=== PATIENT | male | born 1970 | race African-American/Black ===

== ENCOUNTER 2021-03-30 02:31 | Emergency (ER) | payer OTHER ==
[~2021-03-30] VITALS: Ht 167.6 cm; Wt 63.5 kg
--- NOTE | ~2021-03-30 | EMS ---
[facility] [address] [place] [address] EMS Patient Care Report Name: EVERARDO ROSENBERG Room #: DEP [place]#: [id number] Admission: 03/30/21 Attend Phys: Discharge: 03/30/21 Date of : 70 Report #: [id number] THIS REPORT FOR: //name// Report Transmitted: 03/30/2021 06:22 EMS Care Summary [facility] MED-ACT Incident [id number] @ 03/30/2021 02:04 Incident Location [facility] [place] [address] Patient EVERARDO ROSENBERG Male, 50 Years 1970 Patient Address Chief Complaint unconcious, possible ETOH Disposition Transported No Lights/[place] Dispatch Reason Unconscious/Fainting Transported To [facility] Narrative 1149 responded to a call from PD for a 50yo male whom they found laying in the street unconscious. Pt has the smell of ETOH on his breath and will moan when responders attempt sternal rubs. PT is moved to cot and once off road, vitals assessed as well as ETCO2, 12-lead, and BG. All assessments unremarkable and no trauma noted. PD followed EMS to closest facility, [facility] and transfer of care made to RN in room 3. Initial Vitals @02:26P: 86,R: 16,BP: 101/62,EtCO2: 36,SpO2: 96, @02:20P: 84,R: 15,EtCO2: 38,SpO2: 96,[place] Suspected: false @02:16P: 85,BP: 107/67,Temp: 97.2F,Glucose: 116,SpO2: 96, [facility] [address] [place] [address] EMS Patient Care Report Name: EVEARRDO ROSENBERG Room #: DEP [facility]#: [id number] Admission: 03/30/21 Attend Phys: Discharge: 03/30/21 Date of : 70 Report #: [id number] Impression Alcohol use Procedures @:2011-Lead ECG Timeline 02:02,Call Received 02:02,Psap Call 02:04,Dispatched 02:04,En Route 02:10,On Scene 02:12,At Patient 02:16,BP: 107/67 M,PULSE: 85,RR: R,SPO2: 96 Ox,ETCO2: ,B,PAIN: ,GCS: , 02:20,12-Lead ECG, 02:20,BP: / M,PULSE: 84,RR: 15 R,SPO2: 96 Ox,ETCO2: 38 ,BG: ,PAIN: ,GCS: , 02:23,Depart Scene 02:26,BP: 101/62 M,PULSE: 86,RR: 16 R,SPO2: 96 Ox,ETCO2: 36 ,BG: ,PAIN: ,GCS: , 02:26,At Destination 02:50,Call Closed Disclaimer [email or web address] Copyright 2020 [facility] This EMS Care Summary contains data elements from the applicable legal record (which may be displayed differently). It is designed to provide pertinent information for the following purposes: continuity of care, clinical quality, and state data reporting. The complete legal record is available to ED staff and administrators of the receiving hospital in [facility]'s Patient Tracker. All data is provided "as is."
[2021-03-30 04:57] LABS: CALCIUM 8.9 mg/dL (8.5-10.1); CREATININE 0.9 mg/dL (0.7-1.3); POTASSIUM 3.7 mmol/L (3.5-5.1)
[2021-03-30 05:15] LABS: URINE BILIRUBIN NEGATIVE (Negative); URINE BLOOD NEGATIVE (Negative); URINE CLARITY CLEAR; URINE COLOR YELLOW; URINE GLUCOSE-RANDOM* NEGATIVE (Negative); URINE KETONES 1+ (Negative); URINE LEUKOCYTES-REFLEX NEGATIVE (Negative); URINE NITRITE-REFLEX NEGATIVE (Negative); URINE PROTEIN (DIPSTICK) NEGATIVE (Negative); URINE SPECIFIC GRAVITY 1.025 (1.005-1.035)
[2021-03-30 05:23] LABS: AMP/METHAMP Negative (Negative); BARBITURATES Negative (Negative); BENZODIAZEPINES Negative (Negative); COCAINE Negative (Negative); METHADONE Negative (Negative); OPIATES Negative (Negative); PCP POSITIVE (Negative)
[2021-03-30 05:44] VITALS: BP 132/68
== END 2021-03-30 05:00 | disposition home or self-care (01) ==
LOC: ER 02:31
PROVIDERS: Emergency Medicine
DX: F10.129 Alcohol abuse with intoxication, unspecified (principal); Y90.9 Presence of alcohol in blood, level not specified